=== PATIENT | female | born 1940 | race Caucasian/White ===

== ENCOUNTER 2017-07-09 18:49 | Emergency (ER) | payer OTHER ==
[2017-07-09 19:08] VITALS: BMI 30.2
--- NOTE | 2017-07-09 19:10 | PDOC ---
Rapid Medical Evaluation Chief Complaint: Head/Neck problem Time Seen by Provider: 07/09/17 19:05 Medical Evaluation: Allergies Allergy/AdvReac Type Severity Reaction Status Date / Time apple [Apple] Allergy Unknown Verified 03/02/14 11:20 No Known Drug Allergies Allergy Verified 03/02/14 11:20 strawberries Allergy Unknown Uncoded 03/02/14 11:20 blueberries Allergy Uncoded 03/02/14 11:20 raspberry Allergy Uncoded 03/02/14 11:20 07/09/17 19:05 The patient presents with a chief complaint of: Pt was returning from [place] today. Slipped and fell in the airport in the [facility]. Pt. states she hit her head. Denies LOC. Admits to headache, dizziness. I have performed a brief in-person evaluation of this patient; Pertinent physical exam findings: VSS I have ordered the following: CBC, CMP, CT head The patient will proceed to the ED for further evaluation.
[2017-07-09 20:10] LABS: BASO % 1.2 % (0-2.0); EOS % 4.5 % (0-4.5); HEMATOCRIT 42.8 % (32.4-45.2); HEMOGLOBIN 14.4 GM/dL (10.7-15.3); LYMPH % 33.3 % (8-40); MCH 30.8 pg (25.7-33.7); MCHC 33.7 g/dl (32.0-36.0); MEAN CELL VOLUME 91.5 fl (80-96); MONO % 7.6 % (3.8-10.2); NEUT % 53.4 % (42.8-82.8); PLATELET COUNT 140 K/MM3 (134-434); RBC 4.67 M/mm3 (3.60-5.2); RDW 13.9 % (11.6-15.6); WHITE BLOOD COUNT 5.7 K/mm3 (4.0-10.0)
[2017-07-09 20:40] LABS: ALBUMIN 3.8 g/dl (3.4-5.0); ALK PHOS 97 U/L (45-117); ANION GAP 5 (8-16); BILIRUBIN,TOTAL 0.4 mg/dL (0.2-1.0); BLOOD UREA NITROGEN 16 mg/dL (7-18); CALCIUM 7.9 mg/dL (8.5-10.1); CHLORIDE 115 mmol/L (98-107); CO2 25 mmol/L (21-32); CREATININE 0.7 mg/dL (0.55-1.02); GLUCOSE,RANDOM 133 mg/dL (74-106); POTASSIUM 4.6 mmol/L (3.5-5.1); SGOT/AST 17 U/L (15-37); SGPT/ALT 24 U/L (12-78); SODIUM 145 mmol/L (136-145); TOT PROT 6.9 g/dl (6.4-8.2)
--- NOTE | 2017-07-09 22:54 | PDOC ---
History of Present Illness <RigoNanirashaad Cintron - Last Filed: 07/09/17 23:44> - History of Present Illness Initial Comments: 07/09/17 23:11 The patient is a 77 year old female, with a significant past medical history of osteoarthritis, hypertension, diverticulitis, knee placement, and gallbladder removal, who presents to the emergency department for head injury s/p slip and fall today. Patient states that [place] the [place] 10[place] injuring her head. She is complaining of an associated headache and shoulder pain She denies LOC. She denies recent fevers, chills, headache or dizziness. She denies recent nausea, vomit, diarrhea or constipation. She denies recent dysuria, frequency, urgency or hematuria. She denies recent chest pain or shortness of breath. Medication: Lisinopril, Clonazepam Neurontin, Facicam Capsulas. Allergies: NKDA Past surgical history: gall bladder removal Social history: Nonsmoker. Denies EtOH use and recreational drug use. Primary Care Physician: José Miguel Ochoa <Inna Hastings - Last Filed: 07/10/17 00:33> - General Chief Complaint: Head/Neck problem Stated Complaint: FALL/INJURY Time Seen by Provider: 07/09/17 19:05 Past History - Past Medical History COPD: No GI Disorders: Yes (diverticulitis) HTN: Yes - Surgical History Cholecystectomy: Yes Orthopedic Surgery: Yes (knee replacement) - Suicide/Smoking/Psychosocial Hx Smoking Status: No Smoking History: Never smoked Number of Cigarettes Smoked Daily: 0 Information on smoking cessation initiated: Yes Hx Alcohol Use: No Drug/Substance Use Hx: No Substance Use Type: None Hx Substance Use Treatment: No <RigoNanirashaad Cintron - Last Filed: 07/09/17 23:44> <Inna Hastings - Last Filed: 07/10/17 00:33> - Past Medical History Allergies/Adverse Reactions: Allergies Allergy/AdvReac Type Severity Reaction Status Date / Time apple [Apple] Allergy Unknown Verified 07/09/17 19:08 No Known Drug Allergies Allergy Verified 07/09/17 19:08 strawberries Allergy Unknown Uncoded 07/09/17 19:08 blueberries Allergy Uncoded 07/09/17 19:08 raspberry Allergy Uncoded 07/09/17 19:08 Home Medications: Ambulatory Orders Aspirin [ASA -] 81 mg PO DAILY 02/12/14 Zolpidem Tartrate [Ambien] 10 mg PO HS 02/12/14 Acetaminophen [Tylenol .Regular Strength -] 650 mg PO Q6H PRN 30 Days tablet Celecoxib [CeleBREX -] 100 mg PO BID #30 capsule 02/16/14 Gabapentin [Neurontin -] 600 mg PO TID #30 capsule 02/16/14 Sertraline HCl [Zoloft -] 50 mg PO DAILY 30 Days tablet 02/16/14 Alendronate Na [Fosamax (Weekly)] 70 mg PO MO 03/02/14 Carisoprodol [Soma] 1 tab PO BID 03/02/14 Clonazepam [KlonoPIN -] 2 mg PO HS 03/02/14 Cyclobenzaprine HCl [Flexeril -] 10 mg PO TID 03/02/14 Gemfibrozil 1 tab PO BID 03/02/14 Lisinopril [Prinivil] 20 mg PO BID 03/02/14 Omeprazole [Prilosec] 20 mg PO DAILY 03/02/14 Psyllium [Metamucil (Sugar-Free) -] 1 packet PO PRN PRN 03/02/14 Simvastatin [Zocor -] 40 mg PO HS 03/02/14 Cefpodoxime Proxetil [Vantin -] 200 mg PO Q12H #14 tablet 03/03/14 Trauma Specific PMHX - Complaint Specific PMHX Neck Injury: Yes <Nani Sierra - Last Filed: 07/09/17 23:44> Review of Systems - Review of Systems Comments:: 07/09/17 23:19 CONSTITUTIONAL: Absent: fever, no chills, no fatigue EYES: Absent: visual changes ENT: Absent: ear pain, no sore throat CARDIOVASCULAR: Absent: chest pain, no palpitations RESPIRATORY: Absent: cough, no SOB GI: Absent: abdominal pain, no nausea, no vomiting, no constipation, no diarrhea GENITOURINARY: Absent: dysuria, no frequency, no hematuria MUSCULOSKELETAL: Present: shoulder pain, lower back pain Absent: no arthralgia, no myalgia SKIN: Absent: rash NEURO: Present: headache <Inna Hastings - Last Filed: 07/10/17 00:33> *Physical Exam - Vital Signs Last Vital Signs Temp Pulse Resp BP Pulse Ox 97.6 F 87 18 162/71 96 07/09/17 19:05 07/09/17 19:05 07/09/17 19:05 07/09/17 19:05 07/09/17 19:05 <Nani Sierra - Last Filed: 07/09/17 23:44> - Vital Signs Last Vital Signs Temp Pulse Resp BP Pulse Ox 97.6 F 87 18 162/71 96 07/09/17 19:05 07/09/17 19:05 07/09/17 19:05 07/09/17 19:05 07/09/17 19:05 - Physical Exam Comments: 07/09/17 23:29 GENERAL: Well-appearing, well-nourished. No apparent distress. HEENT: Normocephalic, atraumatic. PERRL, EOM intact. No head laceration . No hematoma. CARDIOVASCULAR: Normal S1, S2. Regular rate and rhythm. PULMONARY: Clear to auscultation bilaterally. ABDOMEN: Soft, non-distended, non-tender. BACK: lower back pain. EXTREMITIES: Moving all extremities. Able to raise right arm over head. No bony deformities. SKIN: Warm, dry. No rash NEUROLOGICAL: Ambulatory. No focal neurological deficits. <Inna Hastings - Last Filed: 07/10/17 00:33> ED Treatment Course - LABORATORY CBC & Chemistry Diagram: 07/09/17 19:54 07/09/17 19:54 - ADDITIONAL ORDERS Additional order review: Laboratory Results 07/09/17 19:54 Sodium 145 Potassium 4.6 D Chloride 115 H Carbon Dioxide 25 Anion Gap 5 L BUN 16 D Creatinine 0.7 Creat Clearance w eGFR > 60 Random Glucose 133 H D Calcium 7.9 L Total Bilirubin 0.4 AST 17 ALT 24 Alkaline Phosphatase 97 D Total Protein 6.9 Albumin 3.8 07/09/17 19:54 RBC 4.67 D MCV 91.5 MCHC 33.7 RDW 13.9 MPV 10.0 Neutrophils % 53.4 Lymphocytes % 33.3 D Monocytes % 7.6 Eosinophils % 4.5 Basophils % 1.2 <Nani Sierra - Last Filed: 07/09/17 23:44> - LABORATORY CBC & Chemistry Diagram: 07/09/17 19:54 07/09/17 19:54 - ADDITIONAL ORDERS Additional order review: Laboratory Results 07/09/17 19:54 Sodium 145 Potassium 4.6 D Chloride 115 H Carbon Dioxide 25 Anion Gap 5 L BUN 16 D Creatinine 0.7 Creat Clearance w eGFR > 60 Random Glucose 133 H D Calcium 7.9 L Total Bilirubin 0.4 AST 17 ALT 24 Alkaline Phosphatase 97 D Total Protein 6.9 Albumin 3.8 07/09/17 19:54 RBC 4.67 D MCV 91.5 MCHC 33.7 RDW 13.9 MPV 10.0 Neutrophils % 53.4 Lymphocytes % 33.3 D Monocytes % 7.6 Eosinophils % 4.5 Basophils % 1.2 - RADIOLOGY Radiograph Interpretation: 07/10/17 00:33 CT Head Reported by: Rickie Ramos MD Impression: No acute intracranial hemorrhage mass effect or midline shift. Small chronic 4 mm right frontal hygroma and small chronic 3 mm left frontal hygroma versus frontal lobe volume loss. The ventricles sulci and basilar cisterns are mildly prominent consistent with mild central volume loss. <Inna Hastings - Last Filed: 07/10/17 00:33> Medical Decision Making - Medical Decision Making 07/09/17 23:39 pt slipped at the airport and took a taxi here ct scan head: no acute intracranial hemorrhage,mass effect or midline shift -small chronic 4mm rt frontal hygroma and small cchronic 3mm left frontal hygroma vs frontal volume loss -small vessel ischemic white matter disease -chronic sclerosis of rt mastoid process labs reviewed IMP head injury/ no bleed or fracture 07/09/17 23:43 <Nani Sierra - Last Filed: 07/09/17 23:44> *DC/Admit/Observation/Transfer <Nani Sierra - Last Filed: 07/09/17 23:44> - Attestations Scribe Attestion: 07/09/17 23:33 Documentation prepared by Inna Hastings, acting as certified medical assistant for Nani Sierra MD. <Inna Hastings - Last Filed: 07/10/17 00:33> Diagnosis at time of Disposition: Fall Qualifiers: Encounter type: initial encounter Qualified Code(s): W19.XXXA - Unspecified fall, initial encounter Head injury Qualifiers: Encounter type: initial encounter Qualified Code(s): S09.90XA - Unspecified injury of head, initial encounter - Discharge Dispostion Disposition: HOME Condition at time of disposition: Stable - Referrals Referrals: José Miguel Ochoa MD [Primary Care Provider] - - Patient Instructions Printed Discharge Instructions: DI for Closed Head Injury Additional Instructions: please follow up with your regular physician return for any severe headaches - Post Discharge Activity
[2017-07-10 01:06] VITALS: BP 150/68; PULSE 88; TEMP 98.7
== END 2017-07-10 01:07 | disposition home or self-care (01) ==
LOC: JER 18:49
DX: S09.8XXA Other specified injuries of head, initial encounter (principal); W01.0XXA Fall on same level from slipping, tripping and stumbling without subsequent striking against object, initial encounter; Y93.89 Activity, other specified; Y92.520 Airport as the place of occurrence of the external cause; Y99.8 Other external cause status; I10 Essential (primary) hypertension; M19.90 Unspecified osteoarthritis, unspecified site; Z87.19 Personal history of other diseases of the digestive system
CPT/HCPCS: 36415; 70450-TC; 80053; 85025; 99282-25